=== PATIENT | female | born 1955 | race Caucasian/White ===

== ENCOUNTER 2024-10-26 16:44 | Emergency (ER) | payer MEDICARE, OTHER ==
[~2024-10-26] VITALS: Ht 160 cm; Wt 65.9 kg
--- NOTE | 2024-10-26 17:06 | ELECTROCARDIOGRAPH REPORT ---
[facility] Test Date: 2024-10-26 Test Time: 17:04:53 Pat Name: ALEX HENAO Department: [facility] Patient ID: [facility]-[id number] Room: Gender: F Vending Machine Filler: : 1955 Requested By: CHRISSY RIVAS Order Number: [id number] Reading MD: Measurements Intervals Ulysses Rate: 60 P: 61 CT: 209 QRS: 67 QRSD: 104 T: 61 QT: 417 QTc: 417 Interpretive Statements Sinus rhythm Please click the below link to view image of tracing.
[2024-10-26 17:31] LABS: MEAN PLATELET VOLUME 7.8 FL (7.4-10.4); RED CELL DISTRIBUTION WIDTH 13.9 % (11.5-14.5)
--- NOTE | 2024-10-26 17:33 | Physician Documentation ---
History of Present Illness General Chief Complaint: Hypertension Stated Complaint: ELEVATED BP Time Seen by MD: 17:33 History of Present Illness Initial Comments 69-year-old female complains of room spinning episodes of dizziness which has been present since yesterday she states her symptoms worsened with movement and they have improved slightly since they originated. She states she feels somewhat unsteady when she ambulates she has also noted that her blood pressure has been elevated for the last 4-5 days. The patient is on 20 mg of lisinopril in his had several blood pressure adjustments recently. The patient denies any focal weakness she does have some intermittent nausea currently she does not not report nausea. The patient has no history of stroke in the past. Patient has no fevers chills nausea or vomiting. Medication Reconciliation Allergies: Coded Allergies: diazepam (Verified Allergy, Unknown, 10/26/24) morphine (Verified Allergy, Unknown, 10/26/24) Scheduled PRN Meclizine HCl (Meclizine HCl), 1 TAB PO Q6H PRN for dizziness/vertigo ONDANSETRON ODT 4mg tablet (Ondansetron Odt), 1 TABLET PO Q6H PRN for nausea/vomiting Review of Systems All Other Systems at this time: Reviewed and Negative Physical Exam Physical Exam Vital Signs: Temperature: 97.6, Source: Temporal, Heart Rate: 65, Respiratory Rate: 16, BP: 213/87, Pulse Oximetry: 100, Weight: 65.910 Physical Exam VITALS: Reviewed and as above. GENERAL: Alert, no apparent distress. HEENT: Normocephalic, atraumatic, PERRL, EOMI, dry mucosa, no erythema RESPIRATORY: Lungs clear, normal breath sounds, no respiratory distress. CHEST: No accessory muscle use, no retractions CV: Regular rate, rhythm, no edema, no murmur, No: JVD GI: Soft, non-tender, bowels sounds present, no rebound, guarding, or rigidity BACK: No CVA tenderness, or swelling MUSCULOSKELETAL: No deformities, no edema SKIN: Warm and dry, no rash NEURO: Oriented x4, No motor or sensory deficit cerebellar cerebellar testing is normal patient has slight and gaze horizontal fatiguing nystagmus when looking to the left PSYCH: Normal mood and affect, no agitation Progress Results/Orders Results/Orders Completed Orders - YONATHAN TESFAYE MD Clonidine Tablet (Catapres Tablet) (10/26/24 17:45) Meclizine Tablets (Antivert Tablet) (10/26/24 17:45) Vital Signs 10/26/24 10/26/24 10/26/24 10/26/24 16:58 17:24 17:46 18:28 Temp 97.6 Pulse 65 62 Resp 16 18 18 18 B/P (MAP) 213/87 211/91 (131) Pulse Ox 100 98 O2 Flow Rate 0 10/26/24 10/26/24 10/26/24 18:42 20:22 20:48 Temp 97.4 Pulse 58 56 56 Resp 12 16 14 B/P (MAP) 187/82 (117) 111/75 (87) 125/71 Pulse Ox 98 100 99 O2 Flow Rate 0 0 Laboratory Tests Test 10/26/24 17:22 10/26/24 19:04 White Blood Count 6.0 Red Blood Count 4.33 Hemoglobin 13.3 Hematocrit 38.5 Mean Corpuscular Volume 89.0 Mean Corpuscular Hemoglobin 30.6 Mean Corpuscular Hemoglobin Concent 34.4 Red Cell Distribution Width 13.9 Platelet Count 288 Mean Platelet Volume 7.8 Neutrophils (%) (Auto) 55.1 Lymphocytes (%) (Auto) 35.4 Monocytes (%) (Auto) 7.3 Eosinophils (%) (Auto) 1.6 Basophils (%) (Auto) 0.6 Neutrophils # (Auto) 3.3 Lymphocytes # (Auto) 2.1 Monocytes # (Auto) 0.4 Eosinophils # (Auto) 0.1 Basophils # (Auto) 0.0 CBC Comment Sodium Level 139 Potassium Level 4.6 Chloride Level 105 Carbon Dioxide Level 27.2 Anion Gap 7 L Blood Urea Nitrogen 17 Creatinine 0.96 H Estimated GFR/1.73 m2 57 BUN/Creatinine Ratio 17.7 Glucose Level 102 Calcium Level 9.2 Troponin I High Sensitivity 4 4 Pro-B-Type Natriuretic Peptide 125 Albumin 4.2 Chemistry Comments Troponin I High Sens Percent Delta 0 Troponin I Hi Sens Absolute Change 0 Medical Decision Making Findings The patient has hypertension over the last five days with two days of vertiginous sounding syncope it does appear to be fatiguing on exam and worse when I sit the patient back and to the left. The patient has an otherwise unremarkable neurologic exam the patient will be given a dose of 0.1 mg of clonidine and a dose of meclizine and she will be re-evaluated Differential Diagnosis I received sign-out on this patient at shift change. Plan for re-evaluation after medications. Re-evaluation: The patient states she is feeling significantly better. She ambulates without difficulty. I did offer admission for further evaluation and workup including MRI. I discussed the possible causes including stroke versus peripheral vertigo. After this discussion, she declined admission and preferred to go home. She will be discharged with meclizine and symptomatic treatment. Strict return precautions discussed. Luis Bay MD Departure Time of Disposition: 20:39 Disposition: 01 HOME / SELF CARE / HOMELESS Impression: Primary Impression: Vertigo Condition: Improved Discharge Instructions: Hypertension, Adult, Vertigo, [id number] Referrals: NO PRIMARY CARE PROVIDER (PCP) Prescriptions ONDANSETRON ODT 4mg tablet (ONDANSETRON ODT) 4 Mg Tab.rapdis 1 TABLET PO Q6H PRN for nausea/vomiting, #12 TABLET Prov: LUIS BAY MD 10/26/24 Meclizine HCl (Meclizine HCl) 12.5 Mg Tablet 1 TAB PO Q6H PRN for dizziness/vertigo, #30 TAB Prov: LUIS BAY MD 10/26/24 Education Educated: Patient, Family Educated regarding: diagnosis, treatment, need for follow up Signature Scribe Signature: na Attestation: The note accurately reflects work and decisions made by me.Yonathan Tesfaye MD 10/29/24 00:34 YONATHAN Batista MD Oct 26, 2024 17:33 LUIS BAY MD Oct 26, 2024 20:39
[2024-10-26 17:51] LABS: CREATININE 0.96 MG/DL (0.40-0.90); PRO BRAIN NATRIURETIC PEPTIDE 125 PG/ML (0-125); TOTAL CARBON DIOXIDE 27.2 MMOL/L (24-32); eCRCL 45 ML/MIN; eGFR 57 ML/MIN
[2024-10-26] MEDS ORDERED: MECL-226 PO ×2 (17:54→20:38)
[2024-10-26] MEDS ORDERED: ONDA-243 PO ×2 (17:54→20:38)
--- NOTE | 2024-10-26 18:00 | RADIOLOGY REPORT ---
CHEST RADIOGRAPH Indication: CP Technique: DI CHEST,SINGLE VIEW Comparison: None FINDINGS: 1 The cardiac silhouette is unremarkable. The lungs demonstrate no pulmonary airspace consolidation. Th e pulmonary vasculature is unremarkable. There is no pleural effusion. There is no pneumothorax. Aor tic atherosclerotic disease. IMPRESSION: No pulmonary airspace consolidation.
[2024-10-26 20:48] VITALS: BP 125/71; PULSE 56; RESP 14; TEMP 97.4; O2SAT 99
== END 2024-10-26 20:51 | disposition home or self-care (01) ==
LOC: ER 16:45
DX: R42 Dizziness and giddiness (principal); R06.02 Shortness of breath; Z88.5 Allergy status to narcotic agent
CPT/HCPCS: 36415; 71045; 80048; 83880; 84484; 85025; 93005; 99285; J8597